=== PATIENT | male | born 1940 | race Caucasian/White ===

== ENCOUNTER → 2016-11-13 | Outpatient (CLI) | payer OTHER ==
--- NOTE | 2016-11-13 14:00 | KCIC ---
PROCEDURE Two view chest radiograph. HISTORY Dyspnea. Low O2 saturations. Fatigue for several months. Nonsmoker. TECHNIQUE Two-view chest radiograph was obtained. COMPARISON 09/24/2007. FINDINGS The lungs are clear. There is no pleural effusion. Heart is not enlarged. Pacemaker is noted. There is no heart failure. Tracheostomy is noted. There are mild degenerative changes in the spine. IMPRESSION No acute thoracic findings. Electronically signed by: Temo Spencer MD (Nov 13, 2016 13:58:54)
== END ==
LOC: KCIC 11:23
PROVIDERS: ATTEND Registered Nurse
DX: R06.00 Dyspnea, unspecified (principal)
CPT/HCPCS: 71020